=== PATIENT | female | born 1985 | race Caucasian/White ===

== ENCOUNTER 2016-05-03 22:45 | Emergency (ER) | payer OTHER ==
[~2016-05-03] VITALS: Ht 175.3 cm; Wt 69.1 kg
[2016-05-03 22:50] VITALS: BP 131/80; PULSE 123; RESP 16; O2SAT 97
--- NOTE | 2016-05-03 23:14 | ED.REPORT ---
HPI-General Illness Date of Service May 03, 2016 ED Provider: Dr. Brooks Mirza M.D. A 31 year old female with a history of gastritis and depression presents to the ED with right-sided facial swelling onset 5 days ago. She also reports mild dental pain, earache, cough, and shoulder/neck spasms. The patient denies vocal hoarseness or dysphagia. She was seen by her PCP and at Urgent Care since onset with no definitive cause found for her symptoms, which have worsened in the past 24 hours. Nursing Notes Stated Complaint: R SIDE OF FACE SWOLLEN Chief Complaint: General Complaint Nursing Notes Reviewed: Yes Allergies: Coded Allergies: No Known Allergies (Unverified , 05/03/16) Scheduled PRN Ibuprofen (Ibuprofen) 600 Mg Tablet 600 MG PO QID PRN PRN For Pain General Time Seen by MD: 23:13 Chief Complaint Other (Facial Swelling) Hx Obtained From: Patient Arrived By: Walk-in Sudden in Onset?: No Onset Occurred: 1 day ago Symptom Duration: Since onset Location: : Ear left: Ear right: Mouth Quality: Painful Severity: Current: Mild Severity: Maximum: Mild Associated with: Reports: Cough, Denies: Fever Pertinent Negative: Relieved by nothing Context Related History: Reports Depression Recent Healthcare: Recent doctor visit Similar Sx Previous: No Past Medical History Past Medical History Gastritis Depression Past Surgical History Esophagogastroduodenoscopy with biopsies Smoking History Unknown if Ever Smoker Social History Other Social History: Good social support Ambulatory Status Independent Review of Systems + right-sided facial swelling, shoulder/neck spasms - dysphagia Full Review of Systems Constitutional: Denies: Fever Ears / Nose / Throat: Reports: Earache bilateral, Toothache (Mild), Denies: Voice change Respiratory: Reports: Non-productive cough Complete sys rev & neg: except as marked. Physical Exam Vital Signs Vital Signs Date Time Temp Pulse Resp B/P Pulse Ox O2 Delivery O2 Flow Rate FiO2 05/03/16 22:50 36.8 123 16 131/80 97 Room Air Initial VS: Reviewed Head / Eyes: Atraumatic, Normocephalic Respiratory: No respiratory distress Extremities: Vascular intact, Neuro intact Skin: Warm, Dry, No cyanosis Neurologic: Alert, Oriented, Nonfocal Psychiatric: Mood/affect normal, Behavior normal, Normal thought content General/Constitutional: Awake, Alert, No acute distress ENT: Airway patent, Mucous membranes moist Dental / Gums: Positive: Tender to percussion (Right-sided diffuse, mild) Edema of gingivobuccal sulcus Right facial swelling No trismus Pharynx and tongue midline Multiple teeth filled on right side, all appear intact 2.5 cm jaw excursion Neck: Supple, Full range of motion, No adenopathy Re-Eval/Medical Decision Med Decision/Clinical Course 31-year-old with facial swelling and apparent dental infection. No trismus, no medial involvement, no airway involvement. Begun today only with Augmentin. Decadron additional dose given here. Follow up with dentist [facility]. Prompt return if worsening despite treatment. Source of Hx: Old records Time of Eval: 23:19 Re-Evaluation/Progress Note: Discussed with patient diagnosis and plan for discharge. Follow-up and return to the ER instructions given. Patient agrees with plan for care and all questions were addressed. Counseled Regarding: Diagnosis, Need for follow-up, When/why to return to ED Discharge & Departure Primary Impression: Dental abscess Additional Impression: Right facial swelling Disposition: Home Discharge Condition All VS Reviewed: Yes Condition: Stable Patient Instructions: Dental Abscess (ED) Additional Instructions: Return here promptly if you develop any difficulty with swallowing, speaking, or have difficulty opening your mouth. You may call [facility] at [phone] with any immediate questions. Continue your Augmentin. Ibuprofen four times daily for pain and swelling Follow-up with your dentist as soon as possible. Call them tomorrow morning. Return if any immediate issues Referrals: Mattie Rodriguez (PCP) Scribe Attestation Portions of this note were transcribed by Petra Cormier. I, Dr. Mirza, personally performed the history, physical exam, and medical decision-making; I reviewed and confirmed the accuracy of the information in the transcribed note. Signed by: Amarjit Landin, 05/04/2016, 01:12 copies to: Mattie Rodriguez Christopher W MD May 03, 2016 23:14 PETRA CORMIER May 03, 2016 23:20
[2016-05-03] MEDS ORDERED: Dexamethasone 20 mg/2 mL Oral Solution PO ONE (23:20)
[2016-05-03] MEDS ORDERED: IBUP-1827 PO (23:23)
== END 2016-05-03 23:49 | disposition home or self-care (01) ==
LOC: SED 22:45
DX: K04.7 Periapical abscess without sinus (principal); K29.70 Gastritis, unspecified, without bleeding; F32.9 Major depressive disorder, single episode, unspecified